=== PATIENT | male | born 1935 | race Caucasian/White ===

== ENCOUNTER → 2017-03-11 | Outpatient (CLI) | payer MEDICARE, OTHER ==
[~2017-03-11] MED LIST: ASPIRIN 81MG TA81 MG PO; CARAFATE 1GM TAB1 GM PO; IMDUR 30MG. TAB30 MG PO; LEVOTHYROXIN0.125 MG PO; LOVASTATIN20 MG PO; VERAPAMIL SR 2240 MG PO
--- NOTE | 2017-03-11 14:35 | RADIOLOGY REPORT PS360 ---
PROCEDURE: 2-D M-mode and color Doppler study INDICATIONS FOR THE TEST: Chest pain COPD Heart Murmur Tobacco Smoking Palpitations Fatigue Syncope Edema HypertensionXDiabetes Mellitus Rheumatic Fever SOB [place] Obesity HyperlipidemiaX Family History HD Additional History ABN EKG, CVA PATIENT INFORMATION HEIGHT: WEIGHT: GENDER: Female B/P: 2-D/M-MODE INTERPRETATION: 2-D MEASUREMENTS OBSERVED VALUES IN CMS Right Ventricular Dimension (RVDd) 2.6 Interventricular Septum (Thickness)(IVsd) 2.0 Left Ventricular Internal Dimensions(LVIDd) 5.0 Left Ventricular Posterior Wall (Thickness)(LVPWd) 1.0 Aortic Root 3.4 Aortic Cusp Separation 1.5 Left Atrial Dimensions (LAD) 3.5 2D 1. Left atrium is mildly enlarged, left ventricle is mildly dilated, there is mild concentric left ventricular hypertrophy, there is severely reduced left ventricular systolic function, visually estimated ejection fraction 20-25%, poorly posterolateral wall contractility reasonably well, rest of the myocardial segments are severely hypo to akinetic. 2. The right atrium is mildly enlarged, right ventricle is mildly dilated with normal contractility, there is a pacemaker lead seen in the right ventricle. 3. The aortic valve is minimally thickened and calcified, there is no aortic stenosis. 4. The mitral valve leaflets are minimally thickened, there is no mitral stenosis. 5. The tricuspid valve leaflets are minimally thickened. 6. The pulmonic valve is not well visualized. 7. No significant pericardial effusion noted. DOPPLER INTERROGATION: Doppler interrogation of the aortic, mitral and tricuspid valve reveals presence of moderate to severe mitral and moderate tricuspid regurgitation, calculated right ventricular systolic pressure is 35 mmHg. Diastolic parameters are inconclusive. CONCLUSION: 1. Enlarged left atrium, dilated left ventricle, mild concentric left ventricular hypertrophy, severely reduced left ventricular systolic function, visually estimated ejection fraction of 20-25% with segmental wall motion abnormality described above. 2. Moderate to severe mitral and moderate tricuspid regurgitation, calculated right ventricular systolic pressure is 35 mmHg. 3. No significant pericardial effusion noted.
== END ==
LOC: RT 10:32
DX: I25.10 Atherosclerotic heart disease of native coronary artery without angina pectoris (principal); I42.9 Cardiomyopathy, unspecified

== ENCOUNTER → 2017-05-25 | Outpatient (CLI) | payer MEDICARE, OTHER ==
--- NOTE | 2017-05-25 12:09 | RADIOLOGY REPORT PS360 ---
CHEST(2 VIEWS-NOT PORTABLE) HISTORY: Cough, burning in chest, chest pain COUGH ORDERING PHYSICIAN: Kathrin Mancini APRN PATIENT AGE: 81 years COMPARISON: 08/03/2015 FINDINGS: There has been a prior median sternotomy with CABG. Bipolar pacemaker is present. There is normal heart size. Larger clear bilaterally. There are degenerative change in the thoracic spine. IMPRESSION: 1. Interval pacemaker insertion status post prior CABG. 2. No change with no acute finding
== END ==
LOC: RAD 11:45
DX: R05 Cough (principal)

== ENCOUNTER → 2017-06-06 | Outpatient (CLI) | payer MEDICARE, OTHER ==
[2017-06-06 08:24] LABS: HEMOGLOBIN 15.1 g/dL (14.1-18.0); LYMPH # 2.4 K/mm3 (0.7-4.5); LYMPH % 26.2 % (10-50)
[2017-06-06 10:18] LABS: BUN 18 mg/dL (7-18)
[2017-06-06 10:21] LABS: GFR (ESTIMATED) 49 ML/MIN (>60)
== END ==
LOC: LAB 08:08
PROVIDERS: Internal Medicine
DX: I47.2 Ventricular tachycardia (principal); I25.10 Atherosclerotic heart disease of native coronary artery without angina pectoris; I42.9 Cardiomyopathy, unspecified; I48.0 Paroxysmal atrial fibrillation; R00.2 Palpitations

== ENCOUNTER → 2017-07-10 | Outpatient (CLI) | payer MEDICARE, OTHER ==
--- NOTE | 2017-07-10 12:32 | RADIOLOGY REPORT PS360 ---
CT ABD PELVIS W/O CONTRAST CLINICAL INDICATION: Abdominal pain constipation and diarrhea, esophagitis ABDOMINAL PAIN,IRRITABLE BOWEL SYNDROME,GERD ORDERING PHYSICIAN: Semaj Ramsey MD PATIENT AGE: 82 years COMPARISON: 10/06/2014 TECHNIQUE: Axial images obtained with sagittal and coronal reformats. PROCEDURE: Oral Contrast: Redicat IV Contrast: None . FINDINGS: Present in a prior median sternotomy with CABG. Coronary artery calcifications are present. Normal heart size without evidence of pericardial effusion. There are at least 2 isodensity is involving the liver one in the hepatic dome and one in the left hepatic lobe. These are less than 1 cm may be due to small cysts not significant changed. No radio opaque gallstones are evident. The spleen, adrenal glands, and pancreas are unremarkable. No hydronephrosis or obstructing renal or ureteral calculi are evident. There is vascular calcification of the kidneys. 1.8 similar left renal cyst No evidence of appendicitis, intestinal obstruction, or free air. There is diverticulosis of the descending and sigmoid colon. There remains an unusual opacity between the top of the urinary bladder and the sigmoid colon containing gas and apparent feculent appearing material. This has been previously described dating back to 01/02/2014. The wall of this collection appears slightly thickened. Chronic abscess or large diverticulum is considered the patient did receive oral contrast but it has not made to this region of colon. This area measures approximate 4 x 2.5 cm. There is mild thickening of the sigmoid colon but may be due to nondistention. There is no stranding of the pericolic fat that indicate acute diverticulitis. The prostate is slightly prominent at 4.9 x 3.8 cm There is spondylosis of lumbar spine and mild osteoarthritic changes of the hips. There is a fusiform infrarenal abdominal aortic aneurysm measuring 4.1 x 4.1 cm AP and transverse. Previously the aneurysm measured 3.9 x 3.7 cm. No evidence of acute retroperitoneal hemorrhage. IMPRESSION: 1. Persistent unusual gas collection in the central pelvis this could be related to a large diverticulum or chronic abscess. There is some thickening of the wall of this abnormality suggesting some underlying inflammatory change. 2. Diffuse sigmoid diverticulosis without evidence of diverticulitis 3. 4.1 cm infrarenal abdominal aortic aneurysm slightly increased in size from the previous exam previously measuring 3.9 x 3.7 cm
== END ==
LOC: RAD 07-07 10:30
DX: R10.9 Unspecified abdominal pain (principal); K58.2 Mixed irritable bowel syndrome; K21.9 Gastro-esophageal reflux disease without esophagitis

== ENCOUNTER → 2017-07-20 | Outpatient (CLI) | payer MEDICARE, OTHER ==
[2017-07-20 09:04] LABS: HEMOGLOBIN 14.8 g/dL (14.1-18.0); LYMPH # 2.4 K/mm3 (0.7-4.5); LYMPH % 24.5 % (10-50)
[2017-07-20 09:13] LABS: BUN 17 mg/dL (7-18); GFR (ESTIMATED) 53 ML/MIN (>60)
== END ==
LOC: LAB 08:49
PROVIDERS: Internal Medicine
DX: I25.5 Ischemic cardiomyopathy (principal); I50.22 Chronic systolic (congestive) heart failure